=== PATIENT | female | born 1980 | race Caucasian/White ===

== ENCOUNTER 2020-12-12 14:23 | Emergency (ER) | payer MEDICAID ==
--- NOTE | 2020-12-12 14:27 | EDM.PDOC ---
ED HPI GENERAL MEDICAL PROBLEM - General Chief Complaint: Abdominal Pain Stated Complaint: APPENDICITIS Time Seen by Provider: 12/12/20 14:26 Source of Information: Reports: Patient History Limitations: Reports: No Limitations - History of Present Illness INITIAL COMMENTS - FREE TEXT/NARRATIVE: HISTORY AND PHYSICAL: History of present illness: Patient is a 39-year-old female who presents to the emergency room with complaints of right lower quadrant pain and nausea. She states she has noticed some dull umbilical/mid abdominal pain that over the past few days has gone to her right lower quadrant. She states "I have been putting it off" as it was just mildly bothersome until today. States the pain is sharp to the right lower quadrant and has had several bouts of nausea/vomiting. She was seen at the walk-in clinic this morning, states there CT scan is "down" and was encouraged to come to the emergency room as they were concerned for appendicitis. She states she has not been eating or drinking much today due to her symptoms, has not been able to void. Patient denies any fever, chills, headache, change in vision, syncope or near syncope. Denies any chest pain, back pain, shortness of breath or cough. Denies any diarrhea, constipation or dysuria. Has not noted any blood in urine or stool. No concern for , hysterectomy. Patient has been eating and drinking appropriately. Review of systems: As per history of present illness and below otherwise all systems reviewed and negative. Past medical history: As per history of present illness and as reviewed below otherwise noncontributory. Surgical history: As per history of present illness and as reviewed below otherwise noncontributory. Social history: See social history for further information Family history: As per history of present illness and as reviewed below otherwise noncontributory. Physical exam: General: Well developed and well nourished. Alert and orientated x 3. Nontoxic in appearance and in no acute distress. Vital signs are stable and have been reviewed by me. Nursing notes were reviewed. HEENT: Atraumatic, normocephalic, pupils equal and reactive bilaterally, nega tive for conjunctival pallor or scleral icterus, mucous membranes moist, trachea midline. No drooling or trismus noted. No meningeal signs. No hot potato voice noted. Lungs: Clear to auscultation bilaterally. No wheezes, rales, or rhonchi. Chest nontender. Normal work of breathing, no accessory muscles used. Heart: S1S2, regular rate and rhythm without overt murmur, gallops, or rubs. No JVD. No peripheral edema Abdomen: Soft, nondistended, nontender. Normoactive bowel sounds. Negative for masses or costovertebral tenderness. Skin: Intact, warm, dry. No lesions or rashes noted. Hematologic: No petechiae or purpra. Mucosa appropriate color and normal nail bed color and refill. Extremities: Atraumatic, moves all extremities per self without difficulty or deficits, negative for cords or calf pain. Neurovascular unremarkable. Neuro: Awake, alert, oriented. Cranial nerves II through XII unremarkable. Cerebellum unremarkable. Motor and sensory unremarkable throughout. Exam nonfocal. Psychiatric: Mood and affect are appropriate. Normal thought process. Answering questions appropriately. Notes: *This patient was seen and evaluated during the 2019 SARS-CoV-2 novel coronavirus pandemic period. Community viral transmission is ongoing at time of this encounter and the emergency department is operating under pandemic response procedures. Patient is a 39-year-old female who presents to the emergency room with complaints of right lower quadrant abdominal pain and nausea. She was seen at the walk-in clinic today, their CT scan was not working and she was recommended to come to the emergency room as they were concerned she had appendicitis. Patient does have some mild tenderness to the right lower quadrant. She does states she has not voided yet today, correlates that with not having a drink much due to pain and nausea. Patient is agreeable to lab work, Zofran and imaging. Lab work is unremarkable. Waiting on patient being able to give a urine sample. Patient states her nausea is returning and requesting additional medication. We will give her Phenergan IM. She declines wanting anything for her abdominal pain that she does not like to take "drugs". I did encourage her to let us know if she should change her mind. Vital signs are stable. CT shows nothing seen to explain the patient`s right lower quadrant pain. Normal appearance of the appendix. Normal appearance of the right urinary system. Normal appearance of the right adnexal region. Normal CT of the abdomen with contrast. CT of the pelvis shows moderate sigmoid diverticulosis with no sign of diverticulitis. Status post hysterectomy. Urine is unremarkable. Vital signs remained stable. I have talked with the patient about today's findings, in addition to providing specific details for plan of care. Reassessment at the time of disposition demonstrates that the patient is in no acute distress. The patient is stable for discharge, counseling was provided and we discussed in great detail signs and symptoms that would prompt them to return to the Emergency Department. Medication, follow up and supportive care measures were reviewed and discussed. Voices understanding and is agreeable to plan of care. Denies any further questions or concerns at this time. Diagnostics: CBC, CMP, Lipase, UA Therapeutics: IV fluid, Zofran, Phenergan IM Prescription: Zofran Impression: Diverticulosis Abdominal Pain Plan: 1. You were evaluated today on an emergent basis. Your lab work and imaging are unremarkable. Please continue to monitor your symptoms. You do have diverticulosis which is a normal finding (small pouches in your colon), and typically does not cause any problems until it becomes inflamed (diverticulosis). The CT scan does not show any inflammation at this time. If your symptoms should worsen, new symptoms develop or any of the signs and symptoms we discussed should arise please return to the emergency room or call 911 (if needed). 2. You can alternate Tylenol and ibuprofen as needed for pain and fever management. Zofran as needed for nausea management. 3. We encourage you to follow up with your primary care provider and/or recommended specialist in the next few days for re-evaluation and further care/management. Definitive disposition and diagnosis as appropriate pending reevaluation and review of above. Abdomen Pain Score (Numeric/FACES): 7 - Related Data Allergies Allergy/AdvReac Type Severity Reaction Status Date / Time morphine Allergy Hives Verified 12/12/20 14:37 Home Meds: Home Meds FLUoxetine [PROzac] 60 mg PO DAILY 12/12/20 [History] ED ROS GENERAL - Review of Systems Review Of Systems: Comprehensive ROS is negative, except as noted in HPI. ED EXAM, GI/ABD - Physical Exam Exam: See Below (See dictation) Course - Vital Signs Last Recorded V/S: Last Vital Signs Temp 97.9 F 12/12/20 14:38 Pulse 84 12/12/20 14:38 Resp 18 12/12/20 14:38 BP 156/89 H 12/12/20 14:38 Pulse Ox 99 12/12/20 14:38 - Orders/Labs/Meds Labs: Laboratory Tests 12/12/20 12/12/20 12/12/20 Range/Units 14:27 14:44 16:45 WBC 8.31 (4.0-11.0) K/uL RBC 4.68 (4.30-5.90) M/uL Hgb 14.0 (12.0-16.0) g/dL Hct 43.1 (36.0-46.0) % MCV 92.1 (80.0-98.0) fL MCH 29.9 (27.0-32.0) pg MCHC 32.5 (31.0-37.0) g/dL RDW Std Deviation 44.4 (28.0-62.0) fl RDW Coeff of Na 13 (11.0-15.0) % Plt Count 363 (150-400) K/uL MPV 9.00 (7.40-12.00) fL Neut % (Auto) 61.3 (48.0-80.0) % Lymph % (Auto) 27.2 (16.0-40.0) % [place] % (Auto) 9.9 (0.0-15.0) % Eos % (Auto) 1.4 (0.0-7.0) % Baso % (Auto) 0.2 (0.0-1.5) % Neut # (Auto) 5.1 (1.4-5.7) K/uL Lymph # (Auto) 2.3 (0.6-2.4) K/uL [place] # (Auto) 0.8 (0.0-0.8) K/uL Eos # (Auto) 0.1 (0.0-0.7) K/uL Baso # (Auto) 0.0 (0.0-0.1) K/uL Nucleated RBC % 0.0 /100WBC Nucleated RBCs # 0 K/uL Sodium 139 (136-145) mmol/L Potassium 4.3 (3.5-5.1) mmol/L Chloride 104 (98-107) mmol/L Carbon Dioxide 28.4 (21.0-32.0) mmol/L BUN 16 (7.0-18.0) mg/dL Creatinine 0.8 (0.6-1.0) mg/dL Est Cr Clr Drug Dosing 69.83 mL/min Estimated GFR (MDRD) > 60.0 ml/min Glucose 85 (74-106) mg/dL Calcium 9.0 (8.5-10.1) mg/dL Total Bilirubin 0.3 (0.2-1.0) mg/dL AST 29 (15-37) IU/L ALT 42 (14-63) IU/L Alkaline Phosphatase 59 (46-116) U/L Total Protein 7.6 (6.4-8.2) g/dL Albumin 3.6 (3.4-5.0) g/dL Globulin 4.0 (2.6-4.0) g/dL Albumin/Globulin Ratio 0.9 (0.9-1.6) Lipase 103 (73-393) U/L Urine Color YELLOW Urine Appearance CLEAR Urine pH 7.0 (5.0-8.0) Ur Specific [place] 1.010 (1.001-1.035) Urine Protein NEGATIVE (NEGATIVE) mg/dL Urine Glucose (UA) NEGATIVE (NEGATIVE) mg/dL Urine Ketones NEGATIVE (NEGATIVE) mg/dL Urine Occult Blood NEGATIVE (NEGATIVE) Urine Nitrite NEGATIVE (NEGATIVE) Urine Bilirubin NEGATIVE (NEGATIVE) Urine Urobilinogen 0.2 (<2.0) EU/dL Ur Leukocyte Esterase NEGATIVE (NEGATIVE) Meds: Medications Discontinued Medications Generic Name Dose Route Start Last Admin Trade Name Josq PRN Reason Stop Dose Admin Sodium Chloride 1,000 mls @ 999 mls/hr 12/12/20 15:05 12/12/20 15:42 Normal Saline IV 12/12/20 16:05 999 mls/hr STAT ONE Administration Iopamidol 100 ml 12/12/20 15:34 12/12/20 15:35 Iopamidol 755 Mg/Ml 500 Ml Multipack Bottle IVPUSH 12/12/20 15:35 100 ml ONETIME STA Administration Ondansetron HCl 4 mg 12/12/20 14:47 12/12/20 14:51 Ondansetron 4 Mg/2 Ml Sdv IVPUSH 12/12/20 14:48 4 mg ONETIME ONE Administration Promethazine HCl 25 mg 12/12/20 15:52 12/12/20 15:57 Promethazine 25 Mg/Ml Sdv IM 12/12/20 15:53 25 mg ONETIME ONE Administration Departure - Departure Time of Disposition: 17:11 Disposition: Home, Self-Care 01 Clinical Impression: Diverticulosis Abdominal pain Qualifiers: Abdominal location: right lower quadrant Qualified Code(s): R10.31 - Right lower quadrant pain - Discharge Information Instructions: Abdominal Pain, Adult, [id number] Referrals: PCP,None [Primary Care Provider] - Forms: ED Department Discharge Additional Instructions: The following information is given to patients seen in the emergency department who are being discharged to home. This information is to outline your options for follow-up care. We provide all patients seen in our emergency department with a follow-up referral. The need for follow-up, as well as the timing and circumstances, are variable depending upon the specifics of your emergency department visit. If you don't have a primary care physician on staff, we will provide you with a referral. We always advise you to contact your personal physician following an emergency department visit to inform them of the circumstance of the visit and for follow-up with them and/or the need for any referrals to a consulting specialist. The emergency department will also refer you to a specialist when appropriate. This referral assures that you have the opportunity for follow-up care with a specialist. All of these measure are taken in an effort to provide you with optimal care, which includes your follow-up. Under all circumstances we always encourage you to contact your private physician who remains a resource for coordinating your care. When calling for follow-up care, please make the office aware that this follow-up is from your recent emergency room visit. If for any reason you are refused follow-up, please contact the [facility] Emergency Department at and asked to speak to the emergency department charge nurse. [facility] [address] [place] [id number] [address] [address] Thank you for choosing the [facility] emergency department in [place] for your medical needs today. It was a pleasure caring for you. Today you were seen in the emergency department for abdominal pain. 1. You were evaluated today on an emergent basis. Your lab work and imaging are unremarkable (no appendicitis). Please continue to monitor your symptoms. You do have diverticulosis which is a normal finding (small pouches in your colon), and typically does not cause any problems until it becomes inflamed (diverticulosis). The CT scan does not show any inflammation at this time. If your symptoms should worsen, new symptoms develop or any of the signs and symptoms we discussed should arise please return to the emergency room or call 911 (if needed). 2. You can alternate Tylenol and ibuprofen as needed for pain and fever manage ment. Zofran as needed for nausea management. 3. We encourage you to follow up with your primary care provider and/or recommended specialist in the next few days for re-evaluation and further care/management. Sepsis Event Note (ED) - Focused Exam Vital Signs: Vital Signs Temp Pulse Resp BP Pulse Ox 12/12/20 14:38 97.9 F 84 18 156/89 H 99
[2020-12-12] MEDS ORDERED: Ondansetron 4 MG/2 ML SDV IVPUSH ONE (14:47)
[2020-12-12] MEDS ORDERED: Sodium Chloride 0.9% 1,000 ML IV ONE (15:05)
[2020-12-12 15:19] LABS: BLOOD UREA NITROGEN,BUN 16 mg/dL (7.0-18.0); CARBON DIOXIDE,CO2 28.4 mmol/L (21.0-32.0); CHLORIDE,CL 104 mmol/L (98-107); GLUCOSE RANDOM 85 mg/dL (74-106); LIPASE 103 U/L (73-393); POTASSIUM,K 4.3 mmol/L (3.5-5.1); SODIUM,NA 139 mmol/L (136-145)
[2020-12-12] MEDS ORDERED: Iopamidol 755 MG/ML 500 ML Multipack Bottle IVPUSH STA (15:34)
[2020-12-12] MEDS ORDERED: Promethazine 25 MG/ML SDV IM ONE (15:52)
--- NOTE | 2020-12-12 16:27 | CT ---
INDICATION: Right lower quadrant pain. COMPARISON: None available TECHNIQUE: CT examination of the abdomen and pelvis was performed with the uneventful intravenous administration of 100 cc of Isovue 370 while 2.5 mm thick axial sections were obtained from the lung bases through the pubic symphysis. Oral contrast was not administered. Please note that all CT scans at this facility use dose modulation, iterative reconstruction, and/or weight-based dosing when appropriate to reduce radiation dose to as low as reasonably achievable. FINDINGS: In the abdomen, the liver, spleen, pancreas, and adrenals are normal in appearance. The kidneys are normal in appearance. The gallbladder is normal in appearance. The abdominal aorta is normal in caliber with no sign of dilatation. There is no sign of retroperitoneal mass or adenopathy. The stomach, loops of small bowel, and colon in the abdomen are normal in appearance. In the pelvis, the appendix is normal in appearance with no sign of inflammatory process. There is moderate sigmoid diverticulosis without evidence of diverticulitis. The loops of small bowel and colon in the pelvis are otherwise normal in appearance. The uterus is absent and the adnexal regions are normal in appearance. The urinary bladder is normal in appearance. There is no sign of pelvic or inguinal mass or adenopathy. There is no sign of free air or free fluid in the abdomen or pelvis. The lung bases are clear. There is minimal scoliosis of the inferior lumbar spine convex towards the right. No sign of acute osseous injury. IMPRESSION: Nothing seen to explain the patient`s right lower quadrant pain. Normal appearance of the appendix. Normal appearance of the right urinary system. Normal appearance of the right adnexal region. Normal CT of the abdomen with contrast. CT of the pelvis shows moderate sigmoid diverticulosis with no sign of diverticulitis. Status post hysterectomy. Please note that all CT scans at this facility use dose modulation, iterative reconstruction, and/or weight-based dosing when appropriate to reduce radiation dose to as low as reasonably achievable. Dictated by Rikki Tapia MD @ 12/12/2020 4:26:[address] Rikki Tapia @ Dec 12 2020 4:26PM
== END 2020-12-12 18:19 | disposition home or self-care (01) ==
LOC: MW.ED 14:23
DX: K57.90 Diverticulosis of intestine, part unspecified, without perforation or abscess without bleeding (principal); Z88.6 Allergy status to analgesic agent
CPT/HCPCS: 36415; 74177; 80053; 81003; 83690; 85025; 96372; 96374; 99284; J2405; J2550; J7030; Q9967

== ENCOUNTER 2021-02-19 10:50 | Emergency (ER) | payer MEDICAID ==
--- NOTE | 2021-02-19 12:31 | EDM.PDOC ---
ED HPI GENERAL MEDICAL PROBLEM - General Chief Complaint: Fever Stated Complaint: COVID TEST Time Seen by Provider: 02/19/21 11:04 Source of Information: Reports: Patient History Limitations: Reports: No Limitations - History of Present Illness INITIAL COMMENTS - FREE TEXT/NARRATIVE: HISTORY AND PHYSICAL: History of present illness: Patient is a 40-year-old female who presents emergency room today with concern of chills (has not checked her temperature at home), few episodes of nonbilious nonbloody vomiting, and loss of taste and smell over the past 2 days. Patient states that she did have a direct COVID-19 exposure and was concerned that she had COVID-19 infection. Patient states that she has not taken anything today for her symptoms. Patient denies the COVID-19 vaccination and denies any health history. Patient denies fever, chills, chest pain, shortness of breath, or cough. Denies headache, neck stiff ness, change in vision, syncope, or near syncope. Denies n ausea, vomiting, abdominal pain, diarrhea, constipation, or dysuria. Has not noted any blood in urine or stool. Patient has been eating and drinking appropriately. Review of systems: As per history of present illness and below otherwise all systems reviewed and negative. Past medical history: As per history of present illness and as reviewed below otherwise noncontributory. Surgical history: As per history of present illness and as reviewed below otherwise noncontributory. Social history: See social history for further information Family history: As per history of present illness and as reviewed below otherwise noncontributory. Physical exam: General: Patient is alert, oriented, and in no acute distress. Patient sitting comfortably on exam table. Afebrile vitals stable and reviewed by me. HEENT: Atraumatic, normocephalic, pupils equal and reactive bilaterally, negative for conjunctival pallor or scleral icterus, mucous membranes moist, left TM is normal, right TM is normal with some mild edema of the right external auditory canal with mild pain to palpation of the tragus/auricle movement suggestive of possible early acute otitis externa, uvula midline throat clear, neck supple, nontender, trachea midline. No drooling or trismus noted. No meningeal signs. No hot potato voice noted. Lungs: Clear to auscultation, breath sounds equal bilaterally, chest nontender. Heart: S1S2, regular rate and rhythm without overt murmur Abdomen: Soft, nondistended, nontender. Negative for masses or hepatosplenomegaly. Negative for costovertebral tenderness. Pelvis: Stable nontender. Genitourinary: Deferred. Rectal: Deferred. Skin: Intact, warm, dry. No lesions or rashes noted. Extremities: Atraumatic, negative for cords or calf pain. Neurovascular unremarkable. Neuro: Awake, alert, oriented. Cranial nerves II through XII unremarkable. Cerebellum unremarkable. Motor and sensory unremarkable throughout. Exam nonfocal. Notes: Signs and symptoms that were prompt return to the ED thoroughly discussed with patient. Discussed importance for follow-up with a primary care provider. Voices understanding and is agreeable to plan of care. Denies any further questions or concerns at this time. Diagnostics: Influenza, COVID-19 (Patient offered basic labwork but declines-all risks vs benefits discussed with patient and expresses understanding) Therapeutics: None Prescription: Cortisporin otic Impression: Viral syndrome Acute otitis externa Plan: 1. I encourage you to retest for Covid in the next 1 to 2 days as discussed. In the meantime, continue to quarantine at home until you retest COVID-19. 2. You can alternate ibuprofen and Tylenol as directed for pain and discomfort. Apply medication as prescribed. 3. Follow-up with primary care provider as discussed. Return to the ED as needed and as discussed. Definitive disposition and diagnosis as appropriate pending reevaluation and review of above. - Related Data Allergies Allergy/AdvReac Type Severity Reaction Status Date / Time morphine Allergy Hives Verified 02/19/21 11:07 Home Meds: Home Meds FLUoxetine [PROzac] 60 mg PO DAILY 12/12/20 [History] Hydrocort/Neomycin/Polymyxin B [Gzklevri-Zzfnhyjtq-UU Otic Susp] 2 drop EARRT BID 5 Days #1 bottle 02/19/21 [Rx] Past Medical History HEENT History: Reports: Impaired Vision Psychiatric History: Reports: Depression Other Endocrine/Metabolic History: thyroid cancer - Infectious Disease History Infectious Disease History: Reports: Chicken Pox Social & Family History - Tobacco Use Tobacco Use Status *Q: Unknown Ever Used Tobacco Second Hand Smoke Exposure: No - Caffeine Use Caffeine Use: Reports: None - Recreational Drug Use Recreational Drug Use: No ED ROS GENERAL - Review of Systems Review Of Systems: Comprehensive ROS is negative, except as noted in HPI. ED EXAM, GENERAL - Physical Exam Exam: See Below (see dictation) Course - Vital Signs Last Recorded V/S: Last Vital Signs Temp 98.4 F 02/19/21 11:03 Pulse 70 02/19/21 11:03 Resp 20 02/19/21 11:03 BP 126/71 02/19/21 11:03 Pulse Ox 97 02/19/21 11:03 - Orders/Labs/Meds Orders: Active Orders 24 hr Category Date Time Status INFLUENZA A+B AG SCREEN [RM] Stat Lab 02/19/21 12:37 Ordered Isolation [COMM] Routine Oth 02/19/21 12:37 Ordered Labs: Laboratory Tests 02/19/21 Range/Units 11:25 SARS-CoV-2 RNA (SETH) NEGATIVE (NEGATIVE) Departure - Departure Time of Disposition: 12:37 Disposition: Home, Self-Care 01 Clinical Impression: Viral illness Otitis externa Qualifiers: Otitis externa type: unspecified type Chronicity: acute Laterality: right Qualified Code(s): H60.501 - Unspecified acute noninfective otitis externa, right ear - Discharge Information Prescriptions: Hydrocort/Neomycin/Polymyxin B [Vmiejgrn-Vnbxbhpjl-IL Otic Susp] 2 drop EARRT BID 5 Days #1 bottle Referrals: PCP,None [Primary Care Provider] - Forms: ED Department Discharge Additional Instructions: The following information is given to patients seen in the emergency department who are being discharged to home. This information is to outline your options for follow-up care. We provide all patients seen in our emergency department with a follow-up referral. The need for follow-up, as well as the timing and circumstances, are variable depending upon the specifics of your emergency department visit. If you don't have a primary care physician on staff, we will provide you with a referral. We always advise you to contact your personal physician following an emergency department visit to inform them of the circumstance of the visit and for follow-up with them and/or the need for any referrals to a consulting specialist. The emergency department will also refer you to a specialist when appropriate. This referral assures that you have the opportunity for follow-up care with a specialist. All of these measure are taken in an effort to provide you with optimal care, which includes your follow-up. Under all circumstances we always encourage you to contact your private physician who remains a resource for coordinating your care. When calling for follow-up care, please make the office aware that this follow-up is from your recent emergency room visit. If for any reason you are refused follow-up, please contact the [facility] Emergency Department at and asked to speak to the emergency department charge nurse. [facility] [address] [place] [address] [facility] [address] [place] [address] 1. I encourage you to retest for Covid in the next 1 to 2 days as discussed. In the meantime, continue to quarantine at home until you retest COVID-19. 2. You can alternate ibuprofen and Tylenol as directed for pain and discomfort. Apply medication as prescribed. 3. Follow-up with primary care provider as discussed. Return to the ED as needed and as discussed. Sepsis Event Note (ED) - Evaluation Sepsis Screening Result: No Definite Risk - Focused Exam Vital Signs: Vital Signs Temp Pulse Resp BP Pulse Ox 02/19/21 11:03 98.4 F 70 20 126/71 97 - My Orders Last 24 Hours: My Active Orders 02/19/21 12:37 INFLUENZA A+B AG SCREEN [RM] Stat Isolation [COMM] Routine - Assessment/Plan Last 24 Hours: My Active Orders 02/19/21 12:37 INFLUENZA A+B AG SCREEN [RM] Stat Isolation [COMM] Routine
== END 2021-02-19 13:00 | disposition home or self-care (01) ==
LOC: MW.ED 10:50
DX: B34.9 Viral infection, unspecified (principal); H60.501 Unspecified acute noninfective otitis externa, right ear; Z20.822 Contact with and (suspected) exposure to COVID-19
CPT/HCPCS: 87804; 99283; U0002

== ENCOUNTER 2021-05-18 17:33 | Emergency (ER) | payer MEDICAID ==
--- NOTE | 2021-05-18 17:45 | EDM.PDOC ---
ED HPI GENERAL MEDICAL PROBLEM - General Stated Complaint: COUGH RIBS HURT Time Seen by Provider: 05/18/21 17:38 Source of Information: Reports: Patient History Limitations: Reports: No Limitations - History of Present Illness INITIAL COMMENTS - FREE TEXT/NARRATIVE: HISTORY AND PHYSICAL: History of present illness: Patient is a 40-year-old female who presents to the emergency room with complaints of right posterior rib pain, cough and fatigue. She states she has been tested for COVID-19 which is negative. She has been doing [id number] remedies without any relief. Patient denies any fever, chills, headache, change in vision, syncope or near syncope. Denies any chest pain, back pain, shortness of breath, abdominal pain, nausea, vomiting, diarrhea, constipation or dysuria. Has not noted any blood in urine or stool. Patient has been eating and drinking appropriately. No recent travel or sick contacts. Review of systems: As per history of present illness and below otherwise all systems reviewed and negative. Past medical history: As per history of present illness and as reviewed below otherwise noncontributory. Surgical history: As per history of present illness and as reviewed below otherwise noncontributory. Social history: See social history for further information Family history: As per history of present illness and as reviewed below otherwise noncontributory. Physical exam: General: Well developed and well nourished. Alert and orientated x 3. Nontoxic in appearance and in no acute distress. Vital signs are stable and have been reviewed by me. Nursing notes were reviewed. HEENT: Atraumatic, normocephalic, pupils equal and reactive bilaterally, negative for conjunctival pallor or scleral icterus, mucous membranes moist, TMs normal bilaterally, throat clear, neck supple, nontender, trachea midline. No drooling or trismus noted. No meningeal signs. No hot potato voice noted. Lungs: Slightly diminished to auscultation bilaterally. No wheezes, rales, or r honchi. Chest nontender. Normal work of breathing, no accessory muscles used. Heart: S1S2, regular rate and rhythm without overt murmur, gallops, or rubs. No JVD. No peripheral edema Abdomen: Soft, nondistended, nontender. Normoactive bowel sounds. Negative for masses or costovertebral tenderness. Skin: Intact, warm, dry. No lesions or rashes noted. Hematologic: No petechiae or purpra. Mucosa appropriate color and normal nail bed color and refill. Extremities: Atraumatic, moves all extremities per self without difficulty or deficits, negative for cords or calf pain. Neurovascular unremarkable. Neuro: Awake, alert, oriented. Cranial nerves II through XII unremarkable. Cerebellum unremarkable. Motor and sensory unremarkable throughout. Exam nonfocal. Psychiatric: Mood and affect are appropriate. Normal thought process. Answering questions appropriately. Please note that the patient was seen and evaluated during the 2019 SARS-CoV-2 novel coronavirus pandemic period. Community viral transmission is ongoing at time of this encounter and the emergency department is operating under pandemic response procedures. Medical Decision Making: Patient does not want to be retested for Covid, she was just tested a few days ago. Patient's physical exam reveals slightly diminished lung sounds bilaterally and a strong nonproductive harsh cough noted. We will obtain an x- ray. Vital signs are stable. Dust x-ray is unremarkable. I have talked with the patient about today's findings, in addition to providing specific details for plan of care. Reassessment at the time of disposition demonstrates that the patient is in no acute distress. The patient is stable for discharge, counseling was provided and we discussed in great detail signs and symptoms that would prompt them to return to the Emergency Department. Medication, follow up and supportive care measures were reviewed and discussed. Voices understanding and is agreeable to plan of care. Denies any further questions or concerns at this time. Diagnostics: Chest x-ray Therapeutics: None Prescription: Z-Noel Impression: Bronchitis Plan: 1. You were evaluated today on an emergent basis. Your x-ray shows no evidence of a pneumonia. Given the length of symptoms I am getting give you a Z-Noel. Prescription for cough medication, Cheratussin AC has been prescribed as well. Make sure you do not take this medication while driving or needing to be functioning outside of the house. 2. You can alternate Tylenol and ibuprofen as needed for pain and fever management. 3. We encourage you to follow up with your primary care provider and/or recommended specialist in the next few days for re-evaluation and further care/management. 4. If your symptoms should worsen, new symptoms develop or any of the signs and symptoms we discussed should arise please return to the emergency room or call 911 (if needed). Definitive disposition and diagnosis as appropriate pending reevaluation and review of above. left posterior rib Pain Score (Numeric/FACES): 8 - Related Data Allergies Allergy/AdvReac Type Severity Reaction Status Date / Time morphine Allergy Hives Verified 05/18/21 17:41 Home Meds: Home Meds FLUoxetine [PROzac] 60 mg PO DAILY 12/12/20 [History] Azithromycin [Zithromax] 1 dose PO DAILY 5 Days #6 tab 05/18/21 [Rx] Past Medical History HEENT History: Reports: Impaired Vision Psychiatric History: Reports: Depression Other Endocrine/Metabolic History: thyroid cancer - Infectious Disease History Infectious Disease History: Reports: Chicken Pox Social & Family History - Caffeine Use Caffeine Use: Reports: None ED ROS GENERAL - Review of Systems Review Of Systems: Comprehensive ROS is negative, except as noted in HPI. ED EXAM, GENERAL - Physical Exam Exam: See Below (See dictation) Course - Vital Signs Last Recorded V/S: Last Vital Signs Temp 97.8 F 05/18/21 17:38 Pulse 63 05/18/21 17:38 Resp 18 05/18/21 17:38 BP 127/77 05/18/21 17:38 Pulse Ox 98 05/18/21 17:38 Departure - Departure Time of Disposition: 18:50 Disposition: Home, Self-Care 01 Clinical Impression: Bronchitis - Discharge Information Prescriptions: Azithromycin [Zithromax] 1 dose PO DAILY 5 Days #6 tab Instructions: Acute Bronchitis, Adult, [id number] Referrals: PCP,None [Primary Care Provider] - Additional Instructions: The following information is given to patients seen in the emergency department who are being discharged to home. This information is to outline your options for follow-up care. We provide all patients seen in our emergency department with a follow-up referral. The need for follow-up, as well as the timing and circumstances, are variable depending upon the specifics of your emergency department visit. If you don't have a primary care physician on staff, we will provide you with a referral. We always advise you to contact your personal physician following an emergency department visit to inform them of the circumstance of the visit and for follow-up with them and/or the need for any referrals to a consulting specialist. The emergency department will also refer you to a specialist when appropriate. This referral assures that you have the opportunity for follow-up care with a specialist. All of these measure are taken in an effort to provide you with optimal care, which includes your follow-up. Under all circumstances we always encourage you to contact your private physician who remains a resource for coordinating your care. When calling for follow-up care, please make the office aware that this follow-up is from your recent emergency room visit. If for any reason you are refused follow-up, please contact the [facility] Emergency Department at and asked to speak to the emergency department charge nurse. [facility] [id number] [address] [id number] Thank you for choosing the [facility] emergency department in [place] for your medical needs today. It was a pleasure caring for you. Today you were seen in the emergency department for cough Your prescription was electronically sent to: [place] [facility] 1. You were evaluated today on an emergent basis. Your x-ray shows no evidence of a pneumonia. Given the length of symptoms I am getting give you a Z-Noel. Prescription for cough medication, Cheratussin AC has been prescribed as well (rib pain and cough). Make sure you do not take this medication while driving or needing to be functioning outside of the house. 2. You can alternate Tylenol and ibuprofen as needed for pain and fever management. 3. We encourage you to follow up with your primary care provider and/or recommended specialist in the next few days for re-evaluation and further care/management. 4. If your symptoms should worsen, new symptoms develop or any of the signs and symptoms we discussed should arise please return to the emergency room or call 911 (if needed). Sepsis Event Note (ED) - Evaluation Sepsis Screening Result: No Definite Risk - Focused Exam Vital Signs: Vital Signs Temp Pulse Resp BP Pulse Ox 05/18/21 17:38 97.8 F 63 18 127/77 98
--- NOTE | 2021-05-18 18:50 | CR ---
Indication: Cough Technique: Chest 1 view Comparison: None Findings/Impression: Cardiovascular and mediastinum: Heart size and vasculature are normal in caliber and appearance. Mediastinum is within normal limits. Lungs and pleural space: Lungs are clear. No sign of infiltrate or mass. No sign of pleural effusion. No pneumothorax. Bones and soft tissues: No significant findings. Dictated by Michaela Elizabeth MD @ 05/18/2021 6:49:23 PM (Electronically Signed)
== END 2021-05-18 19:07 | disposition home or self-care (01) ==
LOC: MW.ED 17:33
DX: J40 Bronchitis, not specified as acute or chronic (principal); Z88.5 Allergy status to narcotic agent
CPT/HCPCS: 71046; 71046-26; 99283-25

== ENCOUNTER 2021-06-30 11:44 | Emergency (ER) | payer MEDICAID ==
[2021-06-30 13:23] LABS: BLOOD UREA NITROGEN,BUN 12 mg/dL (7.0-18.0); CARBON DIOXIDE,CO2 28.3 mmol/L (21.0-32.0); CHLORIDE,CL 101 mmol/L (98-107); GLUCOSE RANDOM 112 mg/dL (74-106); POTASSIUM,K 3.8 mmol/L (3.5-5.1); SODIUM,NA 139 mmol/L (136-145)
[2021-06-30 13:51] LABS: CORONAVIRUS COVID-19 NAA POSITIVE (NEGATIVE); INFLUENZA A NAA NEGATIVE (NEGATIVE); INFLUENZA B NAA NEGATIVE (NEGATIVE)
== END 2021-06-30 14:30 | disposition home or self-care (01) ==
LOC: MW.ED 11:44
DX: U07.1 COVID-19 (principal); Z88.5 Allergy status to narcotic agent
CPT/HCPCS: 0240U; 36415; 71045; 80053; 84484; 85025; 93005; 99284

== ENCOUNTER 2021-08-21 19:02 | Emergency (ER) | payer BC, MEDICAID | END 2021-08-21 20:00 | disposition home or self-care (01) | LOC: MW.ED 19:02 | DX: J32.9 Chronic sinusitis, unspecified (principal); F32.A Depression, unspecified; Z79.899 Other long term (current) drug therapy; Z88.5 Allergy status to narcotic agent | CPT/HCPCS: 99283 ==

== ENCOUNTER 2021-11-19 16:27 | Emergency (ER) | payer BC, MEDICAID | END 2021-11-19 18:14 | disposition home or self-care (01) | LOC: MW.ED 16:27 | DX: R21 Rash and other nonspecific skin eruption (principal); F32.A Depression, unspecified; Z79.899 Other long term (current) drug therapy; Z88.5 Allergy status to narcotic agent | CPT/HCPCS: 99282 ==

== ENCOUNTER 2022-05-14 11:24 | Emergency (ER) | payer BC ==
[2022-05-14] MEDS ORDERED: Codeine/Promethazine 10-6.25 MG/5 ML Syrup 5 ML UD Syringe PO STA (11:41)
[2022-05-14 12:22] LABS: CORONAVIRUS COVID-19 NAA NEGATIVE (NEGATIVE); INFLUENZA A NAA NEGATIVE (NEGATIVE); INFLUENZA B NAA NEGATIVE (NEGATIVE)
[2022-05-14 13:35] LABS: CARBON DIOXIDE,CO2 29.6 mmol/L (21.0-32.0); POTASSIUM,K 4.1 mmol/L (3.5-5.1)
== END 2022-05-14 13:56 | disposition home or self-care (01) ==
LOC: MW.ED 11:24
DX: J40 Bronchitis, not specified as acute or chronic (principal); Z88.5 Allergy status to narcotic agent; Z20.822 Contact with and (suspected) exposure to COVID-19
CPT/HCPCS: 0240U; 36415; 71045; 80053; 84484; 85025; 93005; 99284

== ENCOUNTER 2022-05-20 16:32 | Emergency (ER) | payer BC ==
[2022-05-20] MEDS ORDERED: Famotidine 20 MG Tab PO ONE (18:10)
[2022-05-20] MEDS ORDERED: diphenhydrAMINE 25 MG Cap PO ONE (18:10)
== END 2022-05-20 18:40 | disposition home or self-care (01) ==
LOC: MW.ED 16:32
DX: T78.40XA Allergy, unspecified, initial encounter (principal); Z88.6 Allergy status to analgesic agent; Z79.899 Other long term (current) drug therapy
CPT/HCPCS: 99282; A9270

== ENCOUNTER 2022-06-09 08:04 | Emergency (ER) | payer BC ==
[2022-06-09] MEDS ORDERED: Ibuprofen 800 MG Tab PO ONE (08:25)
== END 2022-06-09 10:24 | disposition home or self-care (01) ==
LOC: MW.ED 08:04
DX: M25.531 Pain in right wrist (principal); Z88.8 Allergy status to other drugs, medicaments and biological substances; Z88.5 Allergy status to narcotic agent
CPT/HCPCS: 73110; 99283; A9270

== ENCOUNTER 2022-09-03 15:42 | Emergency (ER) | payer BC ==
[2022-09-03] MEDS ORDERED: Sodium Chloride 0.9% 1,000 ML IV ONE (16:29)
[2022-09-03] MEDS ORDERED: Ondansetron 4 MG/2 ML SDV IVPUSH ONE (16:29)
[2022-09-03] MEDS ORDERED: Ketorolac 30 MG/ML SDV IVPUSH ONE (16:29)
[2022-09-03 16:41] LABS: CORONAVIRUS COVID-19 NAA NEGATIVE (NEGATIVE); INFLUENZA A NAA NEGATIVE (NEGATIVE); INFLUENZA B NAA NEGATIVE (NEGATIVE); RESPIRATORY SYNCYTIAL VIR NAA NEGATIVE (NEGATIVE)
[2022-09-03] MEDS ORDERED: Codeine/Promethazine 10-6.25 MG/5 ML Syrup 5 ML UD Syringe PO STA (17:30)
[2022-09-03 18:37] LABS: CARBON DIOXIDE,CO2 27.2 mmol/L (21.0-32.0); POTASSIUM,K 3.8 mmol/L (3.5-5.1)
== END 2022-09-03 18:55 | disposition home or self-care (01) ==
LOC: MW.ED 15:42
DX: J40 Bronchitis, not specified as acute or chronic (principal); Z88.5 Allergy status to narcotic agent; Z88.8 Allergy status to other drugs, medicaments and biological substances; Z86.16 Personal history of COVID-19; Z20.822 Contact with and (suspected) exposure to COVID-19
CPT/HCPCS: 0241U; 36415; 71045; 80053; 81003; 83690; 85025; 86308; 99284; J3490

== ENCOUNTER 2022-11-04 23:35 | Emergency (ER) | payer BC ==
[2022-11-04] MEDS ORDERED: Ondansetron 4 MG/2 ML SDV IVPUSH ONE (23:48)
[2022-11-04] MEDS ORDERED: Sodium Chloride 0.9% 1,000 ML IV ONE (23:48)
[2022-11-04] MEDS ORDERED: Ketorolac 30 MG/ML SDV IVPUSH ONE (23:48)
[2022-11-04] MEDS ORDERED: fentaNYL 50 MCG/ML SDV IVPUSH ONE (23:50)
[2022-11-05 00:09] LABS: BASOPHILS PERCENT AUTO 0.2 % (0.0-1.5); EOSINOPHILS ABSOLUTE AUTO 0.3 K/uL (0.0-0.7); EOSINOPHILS PERCENT AUTO 3.4 % (0.0-7.0); HEMATOCRIT 42.3 % (36.0-46.0); HEMOGLOBIN 13.7 g/dL (12.0-16.0); LYMPHOCYTES ABSOLUTE AUTO 3.3 K/uL (0.6-2.4); LYMPHOCYTES PERCENT AUTO 41.4 % (16.0-40.0); MEAN CORPUSCULAR HEMOGLOBIN 29.2 pg (27.0-32.0); MEAN CORPUSCULAR HGB CONC 32.4 g/dL (31.0-37.0); MEAN CORPUSCULAR VOLUME 90.2 fL (80.0-98.0); MONOCYTES ABSOLUTE AUTO 0.8 K/uL (0.0-0.8); MONOCYTES PERCENT AUTO 9.8 % (0.0-15.0); NEUTROPHILS ABSOLUTE AUTO 3.6 K/uL (1.4-5.7); NEUTROPHILS PERCENT AUTO 45.2 % (48.0-80.0); PLATELET COUNT,PLT 313 K/uL (150-400); RED BLOOD CELL COUNT 4.69 M/uL (4.30-5.90); WHITE BLOOD CELL COUNT,WBC 8.05 K/uL (4.0-11.0)
[2022-11-05 00:15] LABS: APPEARANCE,URINE SLT CLOUDY; BILIRUBIN,URINE SMALL (NEGATIVE); COLOR,URINE YELLOW; GLUCOSE,URINE NEGATIVE (NEGATIVE); KETONES,URINE TRACE mg/dL (NEGATIVE); LEUKOCYTE ESTERASE,URINE NEGATIVE (NEGATIVE); NITRITE,URINE NEGATIVE (NEGATIVE); OCCULT BLOOD,URINE NEGATIVE (NEGATIVE); PH,URINE 5.5 (5.0-8.0); PROTEIN,URINE TRACE mg/dL (NEGATIVE)
[2022-11-05 00:23] LABS: BACTERIA,URINE 3+ (NEGATIVE); EPITHELIAL CELLS,URINE MANY (NONE-FEW); MUCUS,URINE LIGHT (NONE-MOD); RBC,URINE 0-2 (0-2/HPF)
[2022-11-05 00:24] LABS: ALBUMIN 3.4 g/dL (3.4-5.0); BILIRUBIN TOTAL 0.5 mg/dL (0.2-1.0); CARBON DIOXIDE,CO2 22.9 mmol/L (21.0-32.0); CREATININE 0.8 mg/dL (0.6-1.0); EST CRCL DRUG DOSING (CG) 81.59 mL/min; POTASSIUM,K 3.1 mmol/L (3.5-5.1); PROTEIN TOTAL,TP 6.7 g/dL (6.4-8.2)
[2022-11-05] MEDS ORDERED: Potassium Chloride 20 MEQ Tab.ER PO ONE (00:25)
[2022-11-05] MEDS ORDERED: Iopamidol 755 MG/ML 500 ML Multipack Bottle IVPUSH STA (00:52)
== END 2022-11-05 02:20 | disposition home or self-care (01) ==
LOC: MW.ED 23:35
DX: R10.11 Right upper quadrant pain (principal); Z88.5 Allergy status to narcotic agent; Z88.8 Allergy status to other drugs, medicaments and biological substances; Z86.16 Personal history of COVID-19
CPT/HCPCS: 36415; 74177; 76705; 80053; 81001; 83690; 83735; 84703; 85025; 96361; 96374; 96375; 99284; A9270; J1885; J2405; J3010; J7030; Q9967